=== PATIENT | female | born 1980 | race Two or more races ===

== ENCOUNTER 2021-07-26 12:53 | Outpatient (CLI) | payer OTHER | END 2021-07-26 13:02 | disposition home or self-care (01) | LOC: SONOGRAMA 12:53 → MAMO-SONO 13:15 | DX: E03.8 Other specified hypothyroidism (principal) ==

== ENCOUNTER 2021-08-03 09:40 | Outpatient (CLI) | payer OTHER | END 2021-08-03 09:43 | disposition home or self-care (01) | LOC: MAMO-SONO 09:40 | DX: N60.12 Diffuse cystic mastopathy of left breast (principal); Z12.31 Encounter for screening mammogram for malignant neoplasm of breast ==

== ENCOUNTER 2021-08-29 12:52 | Outpatient (CLI) | payer OTHER | END 2021-08-29 13:02 | disposition home or self-care (01) | LOC: SONOGRAMA 12:52 → MAMO-SONO 13:15 | PROVIDERS: ATTEND General Practice | DX: N60.11 Diffuse cystic mastopathy of right breast (principal) ==